=== PATIENT | female | born 1960 | race Caucasian/White ===

== ENCOUNTER 2019-06-29 00:14 | Inpatient (IN) | payer OTHER ==
[2019-06-29 01:16] LABS: Amphetamine Screen,Urine Not Detected (NotDetected); Barbiturate Screen,Urine Not Detected (NotDetected); Benzodiazepines Screen,Urine Not Detected (NotDetected); Cocaine Screen,Urine Not Detected (NotDetected); Methadone Screen, Urine Not Detected (NotDetected); Opiate Screen,Urine Not Detected (NotDetected); Oxycodone Screen, Urine Not Detected (NotDetected); Phencyclidine Screen,Urine Not Detected (NotDetected); Tricyclic Antidepressant,Urine Not Detected (NotDetected); Urn Cannabinoid Scrn Detected (NotDetected)
[2019-06-29] MEDS ORDERED: DIAZEPAM 5 MG TAB PO STA (01:17)
--- NOTE | 2019-06-29 02:19 | ED ---
Psych HPI - General Chief Complaint: Psychiatric Symptoms Stated Complaint: Mental Health Time Seen by Provider: 06/29/19 00:19 Source: police, RN notes reviewed, old records reviewed Mode of arrival: ambulatory - History of Present Illness Initial Comments: This is a 58-year-old female brought in the ER by PD today. Patient is brought in under pickup order. Patient was found to have or so. House patient states she was mad and angry that the related to his traffic on the police responding to requests, patient does admit to suicidal thoughts MD Complaint: altered mental status -: unknown Associated Psychiatric Symptoms: racing thoughts, auditory hallucinations, visual hallucinations Quality: intermittent, getting worse Improves With: none Worsens With: none Context: not taking psychiatric medications Associated Symptoms: confusion Treatments Prior to Arrival: placed on mental health hold If Self Harm: admits thoughts of self harm - Related Data Allergies Allergy/AdvReac Type Severity Reaction Status Date / Time No Known Allergies Allergy Verified 06/29/19 00:30 Review of Systems ROS Statement: Those systems with pertinent positive or pertinent negative responses have been documented in the HPI. ROS Other: All systems not noted in ROS Statement are negative. Past Medical History Past Medical History: No Reported History History of Any Multi-Drug Resistant Organisms: None Reported Past Surgical History: Orthopedic Surgery Past Psychological History: Anxiety, Bipolar, Depression Smoking Status: Never smoker Past Alcohol Use History: Occasional Past Drug Use History: Marijuana General Exam Limitations: altered mental status General appearance: alert, anxious, in distress Head exam: Present: atraumatic, normocephalic, normal inspection Eye exam: Present: normal appearance, PERRL, EOMI. Absent: scleral icterus, conjunctival injection, periorbital swelling ENT exam: Present: normal exam, mucous membranes moist Neck exam: Present: normal inspection. Absent: tenderness, meningismus, lymphadenopathy Respiratory exam: Present: normal lung sounds bilaterally. Absent: respiratory distress, wheezes, rales, rhonchi, stridor Cardiovascular Exam: Present: normal rhythm, tachycardia, normal heart sounds. Absent: systolic murmur, diastolic murmur, rubs, gallop, clicks GI/Abdominal exam: Present: soft, normal bowel sounds. Absent: distended, tenderness, guarding, rebound, rigid Extremities exam: Present: normal inspection, full ROM, normal capillary refill. Absent: tenderness, pedal edema, joint swelling, calf tenderness Back exam: Present: normal inspection Neurological exam: Present: alert, oriented X3, CN II-XII intact Psychiatric exam: Present: normal affect, normal mood Skin exam: Present: warm, dry, intact, normal color. Absent: rash Course Vital Signs 06/29/19 00:27 Temperature 98.1 F Pulse Rate 112 H Respiratory 18 Rate Blood Pressure 127/84 O2 Sat by Pulse 98 Oximetry - Reevaluation(s) Reevaluation #1: 06/29/19 03:22 Medical records reviewed Reevaluation #2: 06/29/19 03:22 Patient is medically clear for psychiatric evaluation Medical Decision Making - Medical Decision Making 58 female seen in with psychiatry here in the emergency room. Patient deemed medically clear for psychiatric admission, inpatient psychiatric evaluation and treatment - Lab Data Lab Results 06/29/19 Range/Units 00:28 Urine Opiates Screen Not Detected (NotDetected) Ur Oxycodone Screen Not Detected (NotDetected) Urine Methadone Screen Not Detected (NotDetected) Ur Propoxyphene Screen Not Detected (NotDetected) Ur Barbiturates Screen Not Detected (NotDetected) U Tricyclic Antidepress Not Detected (NotDetected) Ur Phencyclidine Scrn Not Detected (NotDetected) Ur Amphetamines Screen Not Detected (NotDetected) U Methamphetamines Scrn Not Detected (NotDetected) U Benzodiazepines Scrn Not Detected (NotDetected) Urine Cocaine Screen Not Detected (NotDetected) U Marijuana (THC) Screen Detected H (NotDetected) Disposition Clinical Impression: Depression, Suicidal ideation, Psychosis, Acute psychosis Disposition: TRANSFER TO PSYCH HOSP/UNIT Condition: Fair Is patient prescribed a controlled substance at d/c from ED?: No Referrals: Nonstaff,Physician [Primary Care Provider] - 1-2 days
[2019-06-29] MEDS: LORazepam 1 MG TAB PO STA ×2 (05:20→05:26)
[2019-06-29] MEDS ORDERED: MAGNESIUM HYDROXIDE 2,400 MG/10 ML CUP PO PRN (05:54)
[2019-06-29] MEDS ORDERED: MAG HYDROX/AL HYDROX/SIMETH 30 ML CUP PO PRN (05:54)
[2019-06-29 08:06] LABS: Basophils % (A) 0 %; Eosinophils # (A) 0.1 k/uL (0-0.7); Eosinophils % (A) 1 %; HCT 45.6 % (34.0-46.0); Lymphocytes # (A) 1.5 k/uL (1.0-4.8); Lymphocytes % (A) 13 %; MCH 29.1 pg (25.0-35.0); MCHC 32.9 g/dL (31.0-37.0); MCV 88.4 fL (80.0-100.0); Mean Platelet Volume 7.2; Monocytes # (A) 0.8 k/uL (0-1.0); Monocytes % (A) 7 %; Neutrophils # (A) 8.5 k/uL (1.3-7.7); Neutrophils % (A) 78 %; Platelet Count 306 k/uL (150-450); RBC 5.16 m/uL (3.80-5.40); RDW 14.3 % (11.5-15.5); WBC 10.9 k/uL (3.8-10.6)
[2019-06-29 08:15] LABS: Albumin 4.9 g/dL (3.5-5.0); Bilirubin, Delta 0.1 mg/dL (0.0-0.2); Bilirubin,Unconjugated 0.6 mg/dL (0.0-1.1); Calcium 9.8 mg/dL (8.4-10.2); Potassium 4.4 mmol/L (3.5-5.1); Total Bilirubin 0.7 mg/dL (0.2-1.3); Total Protein 8.2 g/dL (6.3-8.2)
[2019-06-29] MEDS ORDERED: WATER FOR INJECTION, STERILE 10 ML IV ONE (09:26)
[2019-06-29] MEDS ORDERED: ZIPRASIDONE 20 MG VIAL IM ONE (09:26)
[2019-06-29] MEDS: ZIPRASIDONE 20 MG VIAL IM PRN ×2 (09:31→09:44)
[2019-06-29] MEDS: LORazepam 2 MG/ML INJ IM PRN ×2 (09:31→09:44)
--- NOTE | 2019-06-29 12:04 | P.HP ---
Psychiatric H&P - . H&P Date: 06/29/19 History & Physical: IDENTIFYING DATA: The patient is a 58-year-old female [facility] with history of paranoia. HISTORY OF PRESENT ILLNESS: I reviewed the medical record and attempted to speak with the patient. The police brought her to the medical center on a pickup order. Per the petition she had "delusional thoughts, manic episodes, paranoia, not sleeping, that he doesn't trust the police." According to the information sheet provided with a pickup order she had a machete in her home. The police to stated that she had barricaded herself in her home and broke out the windows in her house with a machete while she was wearing a bullet professed. She was markedly guarded and suspicious. She alleged that the police brought to the hospital to "keep me quiet." She described and organize paranoid delusional beliefs. She talked about a wide conspiracy involving criminal activity with drugs, sex and sex trafficking encompassing a large area of [place] ("from her all the way up the [place]"). She believes that this activity is protected by the police and state senators. 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 When I told her I would like to obtain collateral information from her children or family she told me that no circumstances am I allowed to speak with her family. PAST PSYCHIATRIC HISTORY: She admitted to one prior psychiatric hospitalization 2 years ago at [facility]. She spoke of this admission as a "mistake" and refused to continue with mental health treatment after discharge. PAST MEDICAL HISTORY: She is on medical disability for arthritis and "severe fibromyalgia". ALLERGIES: NO KNOWN DRUG ALLERGIES SUBSTANCE USE HISTORY: She denied a history of substance use and substance use problems. However, her UDS was positive for marijuana. FAMILY PSYCHIATRIC/SUBSTANCE USE HISTORY: She would not answer questions about her family history LEGAL HISTORY: When asked about her legal history she replied that she was a legal compliance officer. SOCIAL HISTORY: She would not provide information about herself or history of that she doesn't home in [place]. She has 3 children and 2 grandchildren. She is currently unemployed and receiving medical disability. MENTAL STATUS EXAM: She presented as a guarded, suspicious and paranoid 58-year-old woman with bleached blonde hair. She was disheveled and wearing hospital gown. She would not come into my office for the interview and sat on the bed at the opposite end of her own. She appeared to attend to the interview. She had no distinguishing features or prominent physical modalities. She had a labile facial expression. She was alert and oriented to person, place and time. She was restless but not agitated and did not display abnormal involuntary movements. His speech was spontaneous, angry with increased rate and volume. Her affect was irritable, angry and hostile. She denied suicidal ideation and wishes. She did not express homicidal ideation. She She feels hopeless about this current hospitalization but denied hopelessness or worthlessness. She ruminated about her chronic and fixed delusional beliefs She described ideas reference, paranoid ideation and delusional beliefs. Her thinking was concrete and her associations are coherent but a logical but consistent with her delusions. She did not express clang associations or neologisms. She denied hallucinations and did not appear to be responding to internal stimuli. Global impression is average. She has no awareness or understanding of her illness or need for treatment. STRENGTHS: Stable housing, stable income, supportive family, good physical health WEAKNESSES: Poor compliance with mental health treatment IMPRESSION: She is a 58-year-old female brought to the Medical Center on a pickup order describing history of paranoia, agitation, for poor self-care and refusal to comply with mental health treatment. During our interview she was markedly guarded and expressed a well organize paranoid delusional beliefs. She was irritable, angry and restless. She should be treated on an inpatient basis with a combination of psychopharmacology and multimodal therapy. She proceed with involuntary hospitalization and begin treatment with an antipsychotic medication. PRINCIPLE DIAGNOSIS: Delusional disorder paranoid type, rule out bipolar disorder current episode manic with psychotic features, rule out schizoaffective disorder RECOMMENDATION: Admit the psychiatric unit. Completed the second clinical certificate and proceeded with an involuntary treatment order. Begin Haldol 5 mg by mouth twice a day and titrated according to clinical response and tolerance. Geodon 20 mg IM twice a day for agitation or aggression. Ativan 1 mg by mouth or IM 3 times a day for anxiety or agitation. 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 Consult medicine for initial physical exam and medical history. Obtain collateral information from family. Evaluate clinical status response to treatment daily basis. Allergies Allergy/AdvReac Type Severity Reaction Status Date / Time No Known Allergies Allergy Verified 06/29/19 00:30 Vital Signs Temp 97.5 F L 06/29/19 06:58 Pulse 103 H 06/29/19 06:58 Resp 18 06/29/19 06:58 BP 117/68 06/29/19 06:58 Pulse Ox 96 06/29/19 06:58 Intake & Output 06/28/19 06/29/19 06/29/19 18:59 06:59 18:59 Weight 83.552 kg Laboratory Last Values WBC 10.9 k/uL (3.8-10.6) H 06/29/19 07:34 RBC 5.16 m/uL (3.80-5.40) 06/29/19 07:34 Hgb 15.0 gm/dL (11.4-16.0) 06/29/19 07:34 Hct 45.6 % (34.0-46.0) 06/29/19 07:34 MCV 88.4 fL (80.0-100.0) 06/29/19 07:34 MCH 29.1 pg (25.0-35.0) 06/29/19 07:34 MCHC 32.9 g/dL (31.0-37.0) 06/29/19 07:34 RDW 14.3 % (11.5-15.5) 06/29/19 07:34 Plt Count 306 k/uL (150-450) 06/29/19 07:34 Neutrophils % 78 % 06/29/19 07:34 Lymphocytes % 13 % 06/29/19 07:34 Monocytes % 7 % 06/29/19 07:34 Eosinophils % 1 % 06/29/19 07:34 Basophils % 0 % 06/29/19 07:34 Neutrophils # 8.5 k/uL (1.3-7.7) H 06/29/19 07:34 Lymphocytes # 1.5 k/uL (1.0-4.8) 06/29/19 07:34 Monocytes # 0.8 k/uL (0-1.0) 06/29/19 07:34 Eosinophils # 0.1 k/uL (0-0.7) 06/29/19 07:34 Basophils # 0.0 k/uL (0-0.2) 06/29/19 07:34 Sodium 136 mmol/L (137-145) L 06/29/19 07:32 Potassium 4.4 mmol/L (3.5-5.1) 06/29/19 07:32 Chloride 101 mmol/L (98-107) 06/29/19 07:32 Carbon Dioxide 21 mmol/L (22-30) L 06/29/19 07:32 Anion Gap 14 mmol/L 06/29/19 07:32 BUN 21 mg/dL (7-17) H 06/29/19 07:32 Creatinine 0.91 mg/dL (0.52-1.04) 06/29/19 07:32 Est GFR (CKD-EPI)AfAm 82 (>60 ml/min/1.73 sqM) 06/29/19 07:32 Est GFR (CKD-EPI)NonAf 71 (>60 ml/min/1.73 sqM) 06/29/19 07:32 Glucose 117 mg/dL (74-99) H 06/29/19 07:32 Calcium 9.8 mg/dL (8.4-10.2) 06/29/19 07:32 Total Bilirubin 0.7 mg/dL (0.2-1.3) 06/29/19 07:32 Conjugated Bilirubin 0.0 mg/dL (0.0-0.3) 06/29/19 07:32 Unconjugated Bilirubin 0.6 mg/dL (0.0-1.1) 06/29/19 07:32 Delta Bilirubin 0.1 mg/dL (0.0-0.2) 06/29/19 07:32 AST 32 U/L (14-36) 06/29/19 07:32 ALT 25 U/L (4-34) 06/29/19 07:32 Alkaline Phosphatase 81 U/L (38-126) 06/29/19 07:32 Total Protein 8.2 g/dL (6.3-8.2) 06/29/19 07:32 Albumin 4.9 g/dL (3.5-5.0) 06/29/19 07:32 Triglycerides 79 mg/dL (<150) 06/29/19 07:32 Cholesterol 272 mg/dL (<200) H 06/29/19 07:32 LDL Cholesterol, Calc 166 mg/dL (0-99) H 06/29/19 07:32 HDL Cholesterol 90 mg/dL (40-60) H 06/29/19 07:32 TSH 2.880 mIU/L (0.465-4.680) 06/29/19 07:32 Urine Opiates Screen Not Detected (NotDetected) 06/29/19 00:28 Ur Oxycodone Screen Not Detected (NotDetected) 06/29/19 00:28 Urine Methadone Screen Not Detected (NotDetected) 06/29/19 00:28 Ur Propoxyphene Screen Not Detected (NotDetected) 06/29/19 00:28 Ur Barbiturates Screen Not Detected (NotDetected) 06/29/19 00:28 U Tricyclic Antidepress Not Detected (NotDetected) 06/29/19 00:28 Ur Phencyclidine Scrn Not Detected (NotDetected) 06/29/19 00:28 Ur Amphetamines Screen Not Detected (NotDetected) 06/29/19 00:28 U Methamphetamines Scrn Not Detected (NotDetected) 06/29/19 00:28 U Benzodiazepines Scrn Not Detected (NotDetected) 06/29/19 00:28 Urine Cocaine Screen Not Detected (NotDetected) 06/29/19 00:28 U Marijuana (THC) Screen Detected (NotDetected) H 06/29/19 00:28 06/29/19 10:04 06/29/19 12:01
[2019-06-29] MEDS ORDERED: BENZTROPINE MESYLATE 1 MG TAB PO PRN (12:06)
[2019-06-29 14:14] LABS: Hemoglobin A1C 5.4 % (4.0-6.0)
--- NOTE | 2019-06-29 18:26 | P.MDCNMH ---
History of Present Illness H&P Date: 06/29/19 Chief Complaint: Medical management 58-year-old female with PMH of anxiety, bipolar depression presents the ED after being brought in by police for erratic behavior. She has been admitted to mental unit for further observation and management. [facility] physicians has been consulted for medical management of this patient. She did require Ativan and Geodon for paranoia and psychosis. Patient reports no past medical history. She reports no ALLERGIES. Patient reports surgical history of bilateral knee replacement, hip replacement and hysterectomy. Patient reports the pain then using CBD with THC. She denies any alcohol use. She reports a history of opioid addiction. Her last use of opiate medication was last March when she had her knee replacement. Patient denies any headache, lower extremity edema, nausea or vomiting, fever or chills, cough, chest pain, shortness of breath, palpitations, changes in urination or bowel habits. No changes in appetite or weight. She denies any dizziness, numbness/weakness/tingling of the extremities. Review of Systems Pertinent positives and negatives as discussed in HPI, a complete review of systems was performed and all other systems are negative. Past Medical History Past Medical History: No Reported History History of Any Multi-Drug Resistant Organisms: None Reported Past Surgical History: Orthopedic Surgery Smoking Status: Never smoker Medications and Allergies Home Medications Medication Instructions Recorded Confirmed Type No Known Home Medications 06/29/19 06/29/19 History Allergies Allergy/AdvReac Type Severity Reaction Status Date / Time No Known Allergies Allergy Verified 06/29/19 00:30 Physical Exam Vitals: Vital Signs Temp Pulse Pulse Resp BP BP Pulse Ox 06/29/19 12:00 99.6 F 06/29/19 06:58 97.5 F L 103 H 18 117/68 96 06/29/19 00:27 98.1 F 112 H 18 127/84 98 Intake and Output 06/29/19 06/29/19 06/29/19 06:59 14:59 22:59 Other: Weight 83.552 kg General: [non toxic], [no distress], [appears at stated age] Derm: [warm], [dry] Head: [atraumatic], [normocephalic], [symmetric] Eyes: [EOMI], [no lid lag], [anicteric sclera] Mouth: [no lip lesion], [mucus membranes moist] Cardiovascular: [S1S2 reg], [tachycardic], [positive DP pulse bilateral], Lungs: [CTA bilateral], [no rhonchi, no rales] , [no accessory muscle use] Abdominal: [soft], [ nontender to palpation], [no guarding], [no appreciable organomegaly] Ext: [no gross muscle atrophy], [no edema], [no contractures] Neuro: [ CN II-XI grossly intact], [no focal neuro deficits] Psych: [Alert], [oriented], [appropriate affect] Cranial Nerve Examination - Cranial Nerves Cranial Nerve II- Optic: Intact Cranial Nerve III- Oculomotor: Intact Cranial Nerve IV- Trochlear: Intact Cranial Nerve V- Trigeminal: Intact Cranial Nerve - Abducens: Intact Cranial Nerve VII- Facial: Intact Cranial Nerve VIII- Auditory: Intact Cranial Nerve IX- Glossopharyngeal: Intact Cranial Nerve X- Vagus: Intact Cranial Nerve XI- Accessory: Intact Cranial Nerve XII- Hypoglossal: Intact Results CBC & Chem 7: 06/29/19 07:34 06/29/19 07:32 Labs: Abnormal Lab Results - Last 24 Hours (Table) 06/29/19 06/29/19 06/29/19 Range/Units 00:28 07:32 07:34 WBC 10.9 H (3.8-10.6) k/uL Neutrophils # 8.5 H (1.3-7.7) k/uL Sodium 136 L (137-145) mmol/L Carbon Dioxide 21 L (22-30) mmol/L BUN 21 H (7-17) mg/dL Glucose 117 H (74-99) mg/dL Cholesterol 272 H (<200) mg/dL LDL Cholesterol, Calc 166 H (0-99) mg/dL HDL Cholesterol 90 H (40-60) mg/dL U Marijuana (THC) Screen Detected H (NotDetected) Assessment and Plan Assessment: Leukocytosis Hyperlipidemia Marijuana use Elevated BUN Patient has leukocytosis of 10.9 with neutrophilia. She is afebrile and has no signs of infection. Plans: Continue to monitor. Lipid panel shows total cholesterol 272, LDL 166 and HDL of 90. Plans: Patient would benefit from dietary modification. This could also be a side effect of her antipsychotic medication. UDS positive for marijuana. Plans: Patient advised on illicit drug use cessation. BUN 21. Likely due to dehydration. Plans: Encourage hydration by mouth. Thank you for this consult. Please call with any additional questions or ted rns.
[2019-06-29] MEDS: HALOPERIDOL 5 MG TAB PO SCH (21:14)
[2019-06-29] MEDS: ACETAMINOPHEN TAB 325 MG TAB PO PRN (21:15)
[2019-06-29] MEDS: LORazepam 1 MG TAB PO PRN (21:15)
[2019-06-30] MEDS: ACETAMINOPHEN TAB 325 MG TAB PO PRN ×2 (05:34→20:53)
[2019-06-30] MEDS: LORazepam 1 MG TAB PO PRN ×3 (05:39→20:53)
[2019-06-30] MEDS: HALOPERIDOL 5 MG TAB PO SCH ×2 (08:40→20:53)
--- NOTE | 2019-06-30 10:20 | P.PN ---
Subjective Progress Note Date: 06/30/19 Principal diagnosis: Delusional disorder paranoid type, rule out bipolar disorder current episode manic with psychotic features, rule out schizoaffective disorder I reviewed the medical record, interviewed the patient and discussed her treatment and treatment plan during team meeting. She would not come into my office for the interview. She stated that she is distressed because "everybody police force" is after her for exposing illegal activity. She denies that she has a mental illness, requires treatment in a psychiatric unit or requires treatment with psychiatric medications. Objective - Vital Signs Vital signs: Vital Signs Temp 98.7 F 06/30/19 06:49 Pulse 87 06/30/19 06:49 Resp 16 06/30/19 06:49 BP 150/68 06/30/19 06:49 Pulse Ox 99 06/30/19 06:49 - Exam She was a disheveled appearing 58-year-old female who was minimally cooperative. She was laying in bed. She would not sit up in bed or leave her room for the interview. She made eye contact and appeared to attend to the interview. She had a blunted facial expression. She showed psychomotor retardation but no abnormal involuntary movements. Her speech was nonspontaneou s with normal rate and rhythm. Her affect was guarded, suspicious and irritable. She did not express suicidal ideation, or homicidal ideation. She denied having homicidal ideation. She did not express clear ideas reference but has paranoid ideation and well organized paranoid delusional beliefs. Her thinking is concrete and associations were coherent and logically consistent with her delusional beliefs. She did not appear to be responding to internal stimuli. - Additional findings Additional findings: Hospitalists history and physical exam appreciated - Allied health notes Allied health notes reviewed: social work - Labs CBC & Chem 7: 06/29/19 07:34 06/29/19 07:32 Assessment and Plan Assessment: She is on change from admission but has so far been compliant with oral Haldol. She has had no further episodes of behavioral dyscontrol. Plan: Continue hospitalization pending the probate hearing. Safety precautions. Continue Haldol 5 mg by mouth twice a day and Cogentin 1 mg by mouth twice a day when necessary for EPS. Continue Geodon 20 mg IM twice a day and Ativan 1 mg by mouth/IM 3 times a day when necessary for agitation, aggression or agitation. Obtain collateral information from family when she gives permission. Encourage participation in therapeutic groups and activities. Evaluate clinical status response to treatment daily basis.
[2019-07-01] MEDS: HALOPERIDOL 5 MG TAB PO SCH ×2 (08:18→20:31)
--- NOTE | 2019-07-01 10:31 | P.PN ---
Progress Note - Text Interval history: The patient is found in her room she follows me to an interview room. She states that she was admitted here for no reason. She reports that the police brought her. She states that assuming she unplugged her TV the police came. She suspects it was the means in which she was being monitored. She states that protesters that were in the [place] protesting against Gov. [place]add[place] have been marching by her house. She states that everybody is in on this and accuses me of the same. She has no questions or concerns rega rding her psychotropic medication. Mental status exam: The patient is an overweight female appearing her stated age. She has short blonde-colored hair she's disheveled in appearance she is wearing hospital gowns. Overall she's cooperative eye contact is appropriate speech is fluent spontaneous nonpressured. She is verbose at times. She conveys delusional thoughts that are paranoid and persecutory in nature. She is reporting no auditory or visual hallucinations. Insight and judgment are impaired. She demonstrates no verbal or physical aggressiveness she demonstrates no involuntary repetitive movements. She indicates that she has no suicidal or homicidal ideation intent or plan. Plan: The patient will continue on her current psychotropic medication we will monitor her for safety vital signs reviewed. She is encouraged to participate in the milieu. She continues to experience acute symptoms of psychosis that requires treatment.
[2019-07-01] MEDS: LORazepam 1 MG TAB PO PRN (10:41)
[2019-07-01 11:11] LABS: Appearance,Urine Cloudy (Clear); Bacteria,Urine Rare /hpf; Bilirubin,Urine Negative (Negative); Blood,Urine Negative (Negative); Color,Urine Yellow; Glucose,Urine (UA) Negative (Negative); Ketones,Urine 3+ (Negative); Leukocyte Esterase,Urine Large (Negative); Mucus,Urine Moderate /hpf; Nitrite,Urine Negative (Negative); Protein,Urine Trace (Negative); RBC,Urine 3 /hpf (0-5); Specific Gravity,Urine 1.021 (1.001-1.035); Squamous Epithelial Cell,Urine 19 /hpf (0-4); Urobilinogen,Urine <2.0 mg/dL (<2.0); WBC,Urine 7 /hpf (0-5)
[2019-07-01] MEDS: ACETAMINOPHEN TAB 325 MG TAB PO PRN ×2 (15:36→20:31)
[2019-07-02] MEDS: ACETAMINOPHEN TAB 325 MG TAB PO PRN ×5 (02:52→20:07)
[2019-07-02] MEDS: LORazepam 1 MG TAB PO PRN ×3 (02:52→20:09)
[2019-07-02] MEDS: HALOPERIDOL 5 MG TAB PO SCH ×2 (07:48→20:04)
[2019-07-02] MEDS: NAPROXEN 250 MG TAB PO PRN (10:36)
--- NOTE | 2019-07-02 12:20 | P.PN ---
Progress Note - Text Interval history: The patient is found in the hallway she follows me to an interview room. She indicates her mood is okay but she has a headache. She states that she is experiencing discontinuation side effects from Zoloft. She has no questions or concerns regarding her current medication although she asked for a stronger dose of Ativan which I described we could not provide. She continues to describe her concerns that precipitated this admission. She states that everyone came in to her home once she unplugged the TV she feels that she was being monitored through her television. She states this happened right after she text did the state inventory representative in the [facility] "when was the next rally". She states immediately afterwards a large group of people were outside of her home for 3 days. She states they were holding Confederate flag's and had weapons. She states that she is aware that there is a large money [employer] operation in [place] as well as a heroin business. Staff reports she slept 8 hours she indicates she is eating. Mental status exam: The patient is alert she is dressed in a black dress and w earing black socks pulled up to her knees. Hygiene grooming adequate eye contact is appropriate speech is fluent spontaneous nonpressured. She reports no hopelessness thinking no suicidal ideation intent or plan. She reports no homicidal ideation intent or plan. She is endorsing no auditory or visual hallucinations currently but continues to endorse persecutory thoughts. She demonstrates no verbal or physical aggressiveness she demonstrates no involuntary repetitive movements. Insight and judgment are impaired. Plan: The patient will continue on her current psychotropic medication. We will monitor for safety and encourage full participation in the milieu. Vital signs reviewed. She requires continued psychiatric hospitalization for her acute symptoms of psychosis.
[2019-07-03] MEDS: LORazepam 1 MG TAB PO PRN ×3 (05:37→20:22)
[2019-07-03] MEDS: ACETAMINOPHEN TAB 325 MG TAB PO PRN ×5 (05:37→20:22)
[2019-07-03 06:30] VITALS: RESP 17
[2019-07-03] MEDS: HALOPERIDOL 5 MG TAB PO SCH ×2 (09:23→20:20)
[2019-07-03] MEDS: NAPROXEN 250 MG TAB PO PRN (11:33)
--- NOTE | 2019-07-03 13:23 | P.PN ---
Subjective Progress Note Date: 07/03/19 Principal diagnosis: Delusional disorder paranoid type, rule out bipolar disorder current episode manic with psychotic features, rule out schizoaffective disorder I reviewed the medical record, interviewed the patient and discussed her treatment and treatment plan during team meeting. She was much more pleasant and engaging than on prior encounters although she would not come into my office for the interview. She again talked about a conspiracy involving criminal activities. She explained that she learned of this conspiracy by watching [employer] videos. She believes that news agencies are involved with conspiracy because they are not report this criminal activity. She was somatically preoccupied and requested "pain medication". She insisted that a pain medication was prescribed to her as an outpatient. She also request had a "wheelchair" and order move about on the unit. I reviewed her medication profile and she was not prescribed pain medications prior to admission. I also reviewed her controlled substance prescription history on [facility]. She was last prescribed Vicodin and Neurontin in March 2018. She denied side effects to the current dose of Haldol. She is frequently requesting Ativan for complaints of anxiety. She does not attend therapeutic groups and activities and does not interact with staff or peers. Objective - Vital Signs Vital signs: Vital Signs Temp 95.8 F L 07/03/19 12:37 Pulse 64 07/03/19 06:29 Resp 17 07/03/19 06:29 BP 134/60 07/03/19 06:29 Pulse Ox 99 07/03/19 06:29 Intake & Output 07/02/19 07/03/19 07/03/19 18:59 06:59 18:59 Weight 83.1 kg - Exam She was a casually groomed appearing 58-year-old female who was pleasant on approach. She was laying in bed. She sat in her bed but would not leave her room for the interview. She made eye contact and appeared to attend to the interview. She had a blunted facial expression. She showed psychomotor retardation but no abnormal involuntary movements. Her speech was spontaneous with normal rate and rhythm. Her affect was guarded and suspicious. She did not express suicidal ideation, or homicidal ideation. She denied having homicidal ideation. She described ideas of reference (she talked about local company intermodal truck driver's pulling their wants as a encoding clerk house indicating their participation in a conspiracy), paranoid ideation and well organized paranoid delusional beliefs. Her thinking is concrete and associations were coherent and logically consistent with her delusional beliefs. She did not appear to be responding to internal stimuli. - Labs CBC & Chem 7: 06/29/19 07:34 06/29/19 07:32 Assessment and Plan Assessment: She remains paranoid and has well-organized paranoid delusions. However, she is less irritable and guarded than on admission. She is more somatically preoccupied and more preoccupied with obtaining "pain medications". Plan: Continue hospitalization pending the probate hearing. Safety precautions. Continue Haldol 5 mg by mouth twice a day and Cogentin 1 mg by mouth twice a day when necessary for EPS. Continue Geodon 20 mg IM twice a day and Ativan 1 mg by mouth/IM 3 times a day when necessary for agitation, aggression or agitation. There is no reason to prescribing opiate pain medication or order a wheelchair or walker at the present time. Obtain collateral information from family when she gives permission. Encourage participation in therapeutic groups and activities. Evaluate clinical status response to treatment daily basis.
--- NOTE | 2019-07-03 18:49 | P.PN ---
Progress Note - Text Progress Note Date: 07/03/19 Patient and nursing regarding urinalysis. Patient has large leukocyte esterase. She does have urinary frequency as per nursing reports. Will start Bactrim 1 tablet twice a day for a total of 3 days. Urine culture ordered.
[2019-07-03] MEDS: SULFAMETHOX-TMP 800-160MG 1 EACH TAB PO SCH (20:20)
[2019-07-04] MEDS: NAPROXEN 250 MG TAB PO PRN ×2 (02:47→14:22)
[2019-07-04 06:37] VITALS: BP 130/61; PULSE 100
[2019-07-04] MEDS: LORazepam 1 MG TAB PO PRN (07:34)
[2019-07-04] MEDS: HALOPERIDOL 5 MG TAB PO SCH (07:34)
[2019-07-04] MEDS: ACETAMINOPHEN TAB 325 MG TAB PO PRN ×2 (07:34→11:54)
[2019-07-04] MEDS: SULFAMETHOX-TMP 800-160MG 1 EACH TAB PO SCH (07:35)
[2019-07-04] MEDS: LORazepam 2 MG/ML INJ IM PRN (12:11)
[2019-07-04 13:48] VITALS: TEMP 97
--- NOTE | 2019-07-04 14:27 | P.DS ---
Providers Date of admission: 06/29/19 05:50 Attending physician: Epifanio Tolentino MD Consults: 06/29/19 05:54 Consult Physician Routine Consulting Provider: [facility] Consult Reason/Comments: Medical H and P Do you want consulting provider notified?: Yes Primary care physician: Physician Nonstaff - Discharge Diagnosis(es) (1) Bipolar disorder, current episode mixed, severe, with psychotic features Current Visit: Yes Status: Acute Hospital Course: The patient is a 58-year-old female admitted involuntarily to the [facility] with history of paranoia. The police brought her to the [facility] on a pickup order. Per the petition she had "delusional thoughts, manic episodes, paranoia, not sleeping, that he doesn't trust the police." According to the information sheet provided with a pickup order she had a machete in her home. The police to stated that she had barricaded herself in her home and broke out the windows in her house with a machete while she was wearing a bullet professed. She was markedly guarded and suspicious. She alleged that the police brought to the hospital to "keep me quiet." She described and organize paranoid delusional beliefs. She talked about a wide conspiracy involving criminal activity with drugs, sex and sex trafficking encompassing a large area of [place] ("from her all the way up the [place]"). She believes that this activity is protected by the police and state senators. She presented herself as having inside knowledge because she had worked as a armored vehicle officer. When I told her I would like to obtain collateral information from her children or family she told me that no circumstances am I allowed to speak with her famil y. She admitted to one prior psychiatric hospitalization 2 years ago at [facility]. She spoke of this admission as a "mistake" and refused to continue with mental health treatment after discharge. We admitted her to psychiatric unit under the care of this consumer loan underwriter. We provided a comprehensive biopsychosocial assessment. The insurance healthcare consultant mat linker completed initial physical exam and medical history and diagnosis leukocytosis, hyperlipidemia, marijuana use and elevated BUN. Her UDS was suspicious of a urinary tract infection and the insurance healthcare consultant recommended a 5 day of Bactrim DS twice a day. We treated her irritability, paranoia and paranoid delusions with Haldol 5 mg by mouth twice a day. She was guarded throughout much of the hospitalization and never consented to family contact. She expressed a fairly fixed delusion that she was the subject of an investigation for special knowledge of a criminal conspiracy involving politicians and the police. She was compliant with treatment but frequently requested additional treatment with benzodiazepines. She also frequently requested a prescription for opiate pain medications. She was angry with our refusal to prescribing opiate pain medications or additional doses of benzodiazepines but did not display behavioral dyscontrol. Her irritability and paranoia gradually resolved with the 10 mg dose of Haldol. However, she did not participate in therapeutic groups and activities and seldom interacted with staff or peers. At time of discharge she presented as a casually groomed short female with bleach blonde hair. She made eye contact and attended to interview. She had no distinguishing features or prominent physical abnormalities. She had a bright facial expression. She was alert and oriented to person, place and time. She showed no abnormality of psychomotor activity. His speech was spontaneous with normal rate, rhythm and volume. Affect was bright, stable and appropriate. She denied suicidal ideation, wishes or homicidal ideation. She did not express such depressive cognitions as hopelessness, helplessness or worthlessness. She did not ruminate about her admitting paranoid delusional be liefs did not express ideas reference or paranoid ideation. Her thinking was concrete but his associations were coherent and logical. She denied hallucinations and did not appear to be responding to internal stimuli. Patient Condition at Discharge: Fair Plan - Discharge Summary New Discharge Prescriptions: New Sulfamethox-Tmp 800-160Mg [Bactrim DS 800-160 mg] 1 each PO BID #5 tab Haloperidol [Haldol] 5 mg PO BID #60 tab Naproxen [Naprosyn] 500 mg PO BID PRN #60 tab PRN Reason: Pain Discharge Medication List Haloperidol [Haldol] 5 mg PO BID #60 tab 07/04/19 [Rx] Naproxen [Naprosyn] 500 mg PO BID PRN #60 tab 07/04/19 [Rx] Sulfamethox-Tmp 800-160Mg [Bactrim DS 800-160 mg] 1 each PO BID #5 tab 07/04/19 [Rx] Follow up Appointment(s)/Referral(s): [facility]. [Outside] - 07/06/19 3:00 pm (Юлия Haroldo) Nonstaff,Physician [Primary Care Provider] - 1-2 days Patient Instructions/Handouts: Psychotic Disorder (DC) Activity/Diet/Wound Care/Special Instructions: Activity and diet as tolerated. Avoid the use of street drugs and alcohol. Take all medications as prescribed. When you are in need of refills on your medications please contact your medical provider and/or outpatient psychiatrist to have this done. Please go to scheduled outpatient appointment for aftercare treatment. If symptoms return or become worse, call the crisis line at and/or go to the nearest emergency room for evaluation. Discharge Disposition: HOME SELF-CARE
[2019-07-04] MEDS ORDERED: LORazepam 1 MG TAB PO SCH (21:00)
== END 2019-07-04 14:47 | disposition home or self-care (01) | DRG 885 ==
LOC: EC 00:14 → 3MHU 05:50
PROVIDERS: ADMIT Psychiatry & Neurology Psychiatry; ATTEND Psychiatry & Neurology Psychiatry
DX: F31.64 Bipolar disorder, current episode mixed, severe, with psychotic features (principal); R45.851 Suicidal ideations; N39.0 Urinary tract infection, site not specified; E78.5 Hyperlipidemia, unspecified; F41.9 Anxiety disorder, unspecified; M79.7 Fibromyalgia; F12.90 Cannabis use, unspecified, uncomplicated; M19.90 Unspecified osteoarthritis, unspecified site; R51 Headache; Z56.0 Unemployment, unspecified
CPT/HCPCS: 80053; 80061; 80306; 81001; 82075; 82248; 83036; 84443; 85025; 99285